=== PATIENT | male | born 1975 | race Two or more races ===

== ENCOUNTER 2017-10-29 23:18 | Emergency (ER) | payer SELFPAY ==
[~2017-10-29] VITALS: Ht 165.1 cm; Wt 79.4 kg
[2017-10-30 00:02] VITALS: BP 175/99
[2017-10-30] MEDS ORDERED: PROVENTIL HFA6.7 GM IH (00:02)
[2017-10-30] MEDS ORDERED: PRED50TA PO (00:02)
[2017-10-30] MEDS ORDERED: BENZ100C PO (00:02)
--- NOTE | 2017-10-30 00:04 | PHYS DOC ---
Past Medical History Past Medical History: Asthma, Hypertension Past Surgical History: Knee Replacement Additional Past Surgical Histo: left knee replacement, 2010 Alcohol Use: None Drug Use: None Adult General Chief Complaint Chief Complaint: Congestion HPI HPI Patient is a 42 year old male with history of hypertension, asthma and smoking who presents today with a dry cough for 2 weeks. Patient denies any fever. Review of Systems Review of Systems Constitutional: Denies any fever. Eyes: Denies change in visual acuity, redness, or eye pain [] HENT: Denies nasal congestion or sore throat [] Respiratory: Reports a dry cough, denies shortness of breath [] Cardiovascular: No additional information not addressed in HPI [] GI: Denies abdominal pain, nausea, vomiting, bloody stools or diarrhea [] : Denies dysuria or hematuria [] Musculoskeletal: Denies back pain or joint pain [] Integument: Denies rash or skin lesions [] Neurologic: Denies headache, focal weakness or sensory changes [] All other systems were reviewed and found to be within normal limits, except as documented in this note. Allergies Allergies Allergies Coded Allergies Type Severity Reaction Last Updated Verified Penicillins Allergy Intermediate 10/29/17 Yes Physical Exam Physical Exam Constitutional: Well developed, well nourished, no acute distress, non-toxic appearance. [] HENT: Normocephalic, atraumatic, bilateral external ears normal, oropharynx moist, no oral exudates, nose normal. [] Eyes: PERRLA, EOMI, conjunctiva normal, no discharge. [] Neck: Normal range of motion, no tenderness, supple, no stridor. [] Cardiovascular:Heart rate regular rhythm, no murmur [] Lungs & Thorax: Bilateral breath sounds clear to auscultation [] Abdomen: Bowel sounds normal, soft, no tenderness, no masses, no pulsatile masses. [] Skin: Warm, dry, no erythema, no rash. [] Back: No tenderness, no CVA tenderness. [] Extremities: No tenderness, no cyanosis, no clubbing, ROM intact, no edema. [] Neurologic: Alert and oriented X 3, normal motor function, normal sensory function, no focal deficits noted. [] Psychologic: Affect normal, judgement normal, mood normal. [] Current Patient Data Vital Signs Vital Signs Date Time Temp Pulse Resp B/P (MAP) Pulse Ox O2 Delivery O2 Flow Rate FiO2 10/29/17 23:26 97.9 68 18 215/105 (141) 100 Room Air 97.9 EKG EKG [] Radiology/Procedures Radiology/Procedures [] Course & Med Decision Making Course & Med Decision Making Pertinent Labs and Imaging studies reviewed. (See chart for details) Patient is in the ED with symptoms consistent of acute bronchitis. Chest x-ray interpreted by Dr. Nelson was negative for any acute findings. Will be discharged with albuterol inhaler, prednisone and Tessalon Perles. Encouraged to consider smoking cessation. Blood pressure was 201 over low 100s. Patient states he has history of hypertension and is on lisinopril 20 mg. There is question whether he is compliant considering he has no PCP and has no explanation of how he gets his BP medicines. I provided him a primary care doctor's list and instructed him to follow-up. Dragon Disclaimer Dragon Disclaimer This electronic medical record was generated, in whole or in part, using a voice recognition dictation system. Departure Departure Impression: Primary Impression: Acute bronchitis Additional Impressions: Smoking addiction Accelerated hypertension Disposition: 01 HOME, SELF-CARE Condition: STABLE Referrals: NO PCP (PCP) follow up with a doctor from the list provided in one week Patient Instructions: Acute Bronchitis, [id number], Hypertension, Smoking Cessation Additional Instructions: You were seen with symptoms consistent of acute bronchitis. Consider smoking cessation. Take the prescribed medicines as ordered. Your blood pressure was elevated in the emergency room. Ensure you are taking your blood pressure medicines as prescribed. Please follow-up with your doctor or a doctor from the list provided for high blood pressure management as well as regular checkups. Scripts Albuterol Sulfate (PROVENTIL HFA INHALER) 6.7 Gm Hfa.aer.ad 1 PUFF IH PRN Q4HRS Y for FOR ASTHMA, #1 INHALER 0 Refills Prov: MUTUNGAGRETCHEN EXTRUSION MANAGER 10/30/17 Benzonatate (TESSALON PERLE) 100 Mg Capsule 1 CAP PO TID, #30 CAP Prov: MUTUNGA,GRETCHEN EXTRUSION MANAGER 10/30/17 Prednisone (PREDNISONE) 50 Mg Tablet 1 TAB PO DAILY, #5 TAB Prov: MUTUNGA,GRETCHEN EXTRUSION MANAGER 10/30/17 Problem Qualifiers Primary Impression: Acute bronchitis Bronchitis organism: unspecified organism Qualified Codes: J20.9 - Acute bronchitis, unspecified MUTUNGA,GRETCHEN EXTRUSION MANAGER Oct 30, 2017 00:04
--- NOTE | 2017-10-30 07:47 | RAD ---
Chest, 2 views, 10/29/2017: History: Cough The heart size and pulmonary vascularity are normal. No pulmonary infiltrates are seen. There is no evidence of pleural fluid. Mild spurring is present in the spine. IMPRESSION: No acute cardiopulmonary abnormality is detected.
== END 2017-10-30 00:10 | disposition home or self-care (01) ==
LOC: ER 23:18
DX: J20.9 Acute bronchitis, unspecified (principal); I10 Essential (primary) hypertension; J45.909 Unspecified asthma, uncomplicated; F17.200 Nicotine dependence, unspecified, uncomplicated; Z88.0 Allergy status to penicillin
CPT/HCPCS: 71020; 99284

== ENCOUNTER 2018-01-28 21:44 | Emergency (ER) | payer SELFPAY ==
[2018-01-28] MEDS: DEXAMETHASONE SOD PHOS 4 MG/ML VIAL PO (22:54)
[2018-01-29 09:28] LABS: NEGATIVE OBC STREP NEG; POSITIVE OBC STREP POS
== END 2018-01-28 23:15 | disposition home or self-care (01) ==
LOC: ER 21:44
DX: K13.79 Other lesions of oral mucosa (principal); J02.9 Acute pharyngitis, unspecified; I10 Essential (primary) hypertension; J45.909 Unspecified asthma, uncomplicated; Z88.0 Allergy status to penicillin
CPT/HCPCS: 87070; 87880; 99283; J1100

== ENCOUNTER 2018-03-18 23:00 | Emergency (ER) | payer SELFPAY | END 2018-03-18 23:25 | disposition home or self-care (01) | LOC: ER 23:00 | DX: R11.0 Nausea (principal); J45.909 Unspecified asthma, uncomplicated; I10 Essential (primary) hypertension; Z88.0 Allergy status to penicillin; Z88.6 Allergy status to analgesic agent | CPT/HCPCS: 99283 ==

== ENCOUNTER 2018-05-09 02:45 | Emergency (ER) | payer SELFPAY ==
[2018-05-09] MEDS ORDERED: amLODIPine BESYLATE 5 MG TABLET PO (03:30)
[2018-05-09] MEDS ORDERED: hydroCHLOROthiazide 12.5 MG CAPSULE PO (03:30)
[2018-05-09] MEDS ORDERED: NITROGLYCERIN OINT 1 GM PACKET. TP (03:30)
[2018-05-09] MEDS ORDERED: LISINOPRIL 10 MG TABLET PO (03:30)
[2018-05-09] MEDS ORDERED: METOPROLOL TART IMMED RELEASE 25 MG TABLET. PO (03:30)
[2018-05-09 03:55] LABS: TROPONINI < 0.017 ng/mL (0.000-0.055)
[2018-05-09] MEDS ORDERED: IBUPROFEN 800 MG TABLET. PO (05:00)
[2018-05-09] MEDS ORDERED: HYDROcodone/APAP 7.5/325MG 1 TAB TABLET PO (05:00)
== END 2018-05-09 05:05 | disposition home or self-care (01) ==
LOC: ER 02:45
DX: I10 Essential (primary) hypertension (principal); R07.89 Other chest pain; J45.909 Unspecified asthma, uncomplicated; Z96.652 Presence of left artificial knee joint
CPT/HCPCS: 36415; 84484; 93005; 99285-25

== ENCOUNTER 2019-07-19 20:30 | Emergency (ER) | payer SELFPAY ==
[~2019-07-19] VITALS: Ht 165.1 cm; Wt 81.2 kg
[~2019-07-19 20:30] MED LIST: ALBU2.5V8 IH; AMLO10TA8 PO; BENZ100C PO; HYDR12.575 PO; LISI-130 PO; METO50TA6 PO; ONDA4TAB10 SL; PRED50TA PO
--- NOTE | 2019-07-19 21:04 | PHYS DOC ---
Past Medical History Past Medical History: Asthma, Hypertension Past Surgical History: Knee Replacement Additional Past Surgical Histo: left knee replacement, 2010 Alcohol Use: None Drug Use: None Adult General Chief Complaint Chief Complaint: CHEST PAIN HPI HPI Patient is a 44 year old male that presents with midsternal chest pain has been ongoing since this morning. Patient states is not made better or worse by rest or exacerbation exercise. The patient has a history of hypertension, and high cholesterol. The patient has not been taking his blood pressure medicine or his cholesterol medicine due to being out of the medicine and not being able to afford it. Rates his pain as 10 in severity and sharp. Review of Systems Review of Systems Constitutional: Denies fever or chills [] Eyes: Denies change in visual acuity, redness, or eye pain [] HENT: Denies nasal congestion or sore throat [] Respiratory: Denies cough or shortness of breath [] Cardiovascular: No additional information not addressed in HPI [] GI: Denies abdominal pain, nausea, vomiting, bloody stools or diarrhea [] : Denies dysuria or hematuria [] Musculoskeletal: Denies back pain or joint pain [] Integument: Denies rash or skin lesions [] Neurologic: Denies headache, focal weakness or sensory changes [] Endocrine: Denies polyuria or polydipsia [] Complete systems were reviewed and found to be within normal limits, except as documented in this note. Allergies Allergies Allergies Coded Allergies Type Severity Reaction Last Updated Verified Penicillins Allergy Intermediate 10/29/17 Yes aspirin Allergy Mild 03/04/18 Yes Physical Exam Physical Exam Constitutional: Well developed, well nourished, no acute distress, non-toxic appearance. [] HENT: Normocephalic, atraumatic, bilateral external ears normal, oropharynx moist, no oral exudates, nose normal. [] Eyes: PERRLA, EOMI, conjunctiva normal, no discharge. [] Neck: Normal range of motion, no tenderness, supple, no stridor. [] Cardiovascular:Heart rate regular rhythm, no murmur, midsternal chest is tender to palpation. Lungs & Thorax: Bilateral breath sounds clear to auscultation [] Abdomen: Bowel sounds normal, soft, no tenderness, no masses, no pulsatile masses. [] Skin: Warm, dry, no erythema, no rash. [] Back: No tenderness, no CVA tenderness. [] Extremities: No tenderness, no cyanosis, no clubbing, ROM intact, no edema. [] Neurologic: Alert and oriented X 3, normal motor function, normal sensory function, no focal deficits noted. [] Psychologic: Affect normal, judgement normal, mood normal. [] Current Patient Data Lab Values Laboratory Tests Test 07/19/19 20:38 White Blood Count 9.4 x10^3/uL (4.0-11.0) Red Blood Count 4.73 x10^6/uL (4.30-5.70) Hemoglobin 14.4 g/dL (13.0-17.5) Hematocrit 41.5 % (39.0-53.0) Mean Corpuscular Volume 88 fL (79-100) Mean Corpuscular Hemoglobin 30 pg (25-35) Mean Corpuscular Hemoglobin Concent 35 g/dL (31-37) Red Cell Distribution Width 15.0 % (11.5-14.5) H Platelet Count 308 x10^3/uL (140-400) Neutrophils (%) (Auto) 54 % (31-73) Lymphocytes (%) (Auto) 33 % (24-48) Monocytes (%) (Auto) 9 % (0-9) Eosinophils (%) (Auto) 4 % (0-3) H Basophils (%) (Auto) 1 % (0-3) Neutrophils # (Auto) 5.0 x10^3/uL (1.8-7.7) Lymphocytes # (Auto) 3.1 x10^3/uL (1.0-4.8) Monocytes # (Auto) 0.9 x10^3/uL (0.0-1.1) Eosinophils # (Auto) 0.3 x10^3/uL (0.0-0.7) Basophils # (Auto) 0.1 x10^3/uL (0.0-0.2) Sodium Level 143 mmol/L (136-145) Potassium Level 4.0 mmol/L (3.5-5.1) Chloride Level 108 mmol/L (98-107) H Carbon Dioxide Level 27 mmol/L (21-32) Anion Gap 8 (6-14) Blood Urea Nitrogen 10 mg/dL (8-26) Creatinine 1.4 mg/dL (0.7-1.3) H Estimated GFR (Cockcroft-Gault) 55.6 BUN/Creatinine Ratio 7 (6-20) Glucose Level 87 mg/dL (70-99) Calcium Level 9.3 mg/dL (8.5-10.1) Total Bilirubin 0.2 mg/dL (0.2-1.0) Aspartate Amino Transferase (AST) 21 U/L (15-37) Alanine Aminotransferase (ALT) 27 U/L (16-63) Alkaline Phosphatase 48 U/L (46-116) Troponin I Quantitative < 0.017 ng/mL (0.000-0.055) Total Protein 7.7 g/dL (6.4-8.2) Albumin 3.7 g/dL (3.4-5.0) Albumin/Globulin Ratio 0.9 (1.0-1.7) L Laboratory Tests 07/19/19 20:38 Laboratory Tests 07/19/19 20:38 EKG EKG Interpreted by Dr. Urbina. Sinus rate of 63, No STEMI.[] Radiology/Procedures Radiology/Procedures [] Course & Med Decision Making Course & Med Decision Making Pertinent Labs and Imaging studies reviewed. (See chart for details) Patient has been having cp, likely musculoskeletal in nature but will order labs, ekg, chest xray. Patient is allergic to aspirin. Labs and chest x-ray are unremarkable. Appears to be musculoskeletal in nature. Will write temporary scripts for blood pressure and cholesterol medication and have follow up with primary care provider. Heart score recommends D/c home. Dragon Disclaimer Dragon Disclaimer This electronic medical record was generated, in whole or in part, using a voice recognition dictation system. Departure Departure Impression: Primary Impression: Chest pain Disposition: HOME, SELF-CARE Condition: STABLE Referrals: NO PCP (PCP) Patient Instructions: Costochondritis, [id number] Additional Instructions: Thank you for visiting [facility]. We appreciate you trusting us with your care. If any additional problems come up don't hesitate to return to visit us. Please follow up with your primary care provider so they can plan additional care if needed and know about the problem that you had. If symptoms worsen come back to the Emergency Department. Any concerning symptoms that start such as chest pain, shortness of air, weakness or numbness on one side of the body, running high fevers or any other concerning symptoms return to the ER. Scripts Atorvastatin Calcium (LIPITOR) 20 Mg Tablet 20 MG PO DAILY for FOR CHOLESTEROL for 30 Days, #30 TAB 0 Refills Prov: LONDON RALPH APRN 07/19/19 Lisinopril/Hydrochlorothiazide (LISINOPRIL-HCTZ 20-12.5 MG TAB) 1 Each Tablet 1 TAB PO DAILY for 30 Days, #30 TAB 0 Refills Prov: LONDON RALPH APRN 07/19/19 The HEART Score for CP Pts HEART Score for Chest Pain: HEART Score for Chest Pain Response (Comments) Value History Slighlty/Non-Suspicious 0 ECG Normal 0 Age < 45 0 Risk Factors >3 Risk Factors or Hx CAD 2 Troponin < Normal Limit 0 Total 2 Risk Factors: Risk Factors: DM, Current or recent (<one month) smoker, HTN, HLP, family history of CAD, obesity. Risk Scores: Score 0 - 3: 2.5% MACE over next 6 weeks - Discharge Home Score 4 - 6: 20.3% MACE over next 6 weeks - Admit for Clinical Observation Score 7 - 10: 72.7% MACE over next 6 weeks - Early Invasive Strategies Problem Qualifiers Primary Impression: Chest pain Chest pain type: unspecified Qualified Codes: R07.9 - Chest pain, unspecified LONDON RALPH APRN Jul 19, 2019 21:04
[2019-07-19 21:08] LABS: BASO # 0.1 x10^3/uL (0.0-0.2); BASO % 1 % (0-3); EOS # 0.3 x10^3/uL (0.0-0.7); EOS % 4 % (0-3); HEMATOCRIT 41.5 % (39.0-53.0); HEMOGLOBIN 14.4 g/dL (13.0-17.5); LYMPH # 3.1 x10^3/uL (1.0-4.8); LYMPH % 33 % (24-48); MEAN CORPUSCULAR HEMOGLOBIN 30 pg (25-35); MEAN CORPUSCULAR HGB CONC 35 g/dL (31-37); MEAN CORPUSCULAR VOLUME 88 fL (79-100); MONO # 0.9 x10^3/uL (0.0-1.1); MONO % 9 % (0-9); NEUT % 54 % (31-73); PLATELET COUNT 308 x10^3/uL (140-400); RED BLOOD COUNT 4.73 x10^6/uL (4.30-5.70); WHITE BLOOD COUNT 9.4 x10^3/uL (4.0-11.0)
[2019-07-19 21:22] LABS: CALCIUM 9.3 mg/dL (8.5-10.1); CREATININE 1.4 mg/dL (0.7-1.3); GFR 55.6
[2019-07-19 21:28] LABS: ALBUMIN 3.7 g/dL (3.4-5.0); ALBUMIN/GLOBULIN RATIO 0.9 (1.0-1.7); TOTAL BILIRUBIN 0.2 mg/dL (0.2-1.0); TOTAL PROTEIN 7.7 g/dL (6.4-8.2)
[2019-07-19] MEDS ORDERED: LISI1TAB19 PO (21:53)
[2019-07-19] MEDS ORDERED: ATOR20TA PO (21:53)
[2019-07-19 22:04] VITALS: BP 165/83
--- NOTE | 2019-07-19 22:13 | RAD ---
CHEST PA LATERAL History: Chest pain, shortness of air, swelling for one day Comparison: March 05, 2018 Findings: 2 views of the chest are submitted. There is no infiltrate, pneumothorax, or effusion. Pericardial cardiac silhouette is within normal limits in size. Impression: 1. There is no radiographic evidence of acute cardiopulmonary disease. Electronically signed by: Balaji Duke MD (07/19/2019 10:10 PM) [facility]
--- NOTE | 2019-07-20 05:28 | EKG ---
[facility] [address] [place] [address] Test Date: 2019-07-19 Test Time: 20:34:11 Pat Name: THEA CHRISTIANSON Department: Room: Gender: M [employer]: : 1975 Requested By: LONDON RALPH Order Number: [id number] Reading MD: Lloyd Walters MD Measurements Intervals [place] Rate: 63 P: 37 [place]: 126 QRS: 5 QRSD: 88 T: 18 QT: 378 QTc: 390 Interpretive Statements SINUS RHYTHM Electronically Signed On 07-20-2019 18:53:30 CDT by Lloyd Walters MD
== END 2019-07-19 22:10 | disposition home or self-care (01) ==
LOC: ER 20:30
DX: R07.89 Other chest pain (principal); I10 Essential (primary) hypertension; E78.00 Pure hypercholesterolemia, unspecified; J45.909 Unspecified asthma, uncomplicated; Z88.0 Allergy status to penicillin; Z88.6 Allergy status to analgesic agent
CPT/HCPCS: 36415; 71046; 80053; 84484; 85025; 93005; 99283; 99285

== ENCOUNTER 2019-09-30 16:59 | Emergency (ER) | payer SELFPAY ==
[~2019-09-30] VITALS: Ht 165.1 cm; Wt 81.2 kg
[~2019-09-30 16:59] MED LIST changes: -ALBU2.5V8 IH; +ATOR20TA PO; +LISI1TAB19 PO; +PROVENTIL HFA6.7 GM IH
[2019-09-30 17:20] VITALS: BP 189/105
--- NOTE | 2019-09-30 17:26 | PHYS DOC ---
Past Medical History Past Medical History: Asthma, Hypertension Past Surgical History: Knee Replacement Additional Past Surgical Histo: left knee replacement, 2010 Alcohol Use: None Drug Use: None Adult General Chief Complaint Chief Complaint: KNEE INJURY HPI HPI Patient is a 44 year old male who presents with states he was at work this morning and at 0800 his tip of his got caught under a trash bin and he fell straight onto his knee. Patient states he continued to work all day. Patient rates his pain an 8 out of 10. Review of Systems Review of Systems Musculoskeletal: Denies back pain. Right knee joint pain [] All other systems were reviewed and found to be within normal limits, except as documented in this note. Current Medications Current Medications Current Medications Medications (Trade) Dose Ordered Sig/Karen Start Time Stop Time Status Last Admin Dose Admin Acetaminophen/ Hydrocodone Bitart (Lortab 5/325) 1 tab 1X ONCE 09/30/19 17:30 09/30/19 17:31 DC 09/30/19 17:54 1 TAB Allergies Allergies Allergies Coded Allergies Type Severity Reaction Last Updated Verified Penicillins Allergy Intermediate 10/29/17 Yes ketorolac Allergy Intermediate headache 09/30/19 Yes aspirin Allergy Mild 03/04/18 Yes Physical Exam Physical Exam Constitutional: Well developed, well nourished, no acute distress, non-toxic appearance. [] Skin: Warm, dry, no erythema, no rash. [] Back: No tenderness, no CVA tenderness. [] Extremities: Right knee tenderness, no cyanosis, no clubbing, ROM intact, Right knww 1+ edema. [] Neurologic: Alert and oriented X 3, normal motor function, normal sensory function, no focal deficits noted. [] Psychologic: Affect normal, judgement normal, mood normal. [] Current Patient Data Vital Signs Vital Signs Date Time Temp Pulse Resp B/P (MAP) Pulse Ox O2 Delivery O2 Flow Rate FiO2 09/30/19 17:20 97.8 80 18 189/105 (133) 95 Room Air 97.8 EKG EKG [] Radiology/Procedures Radiology/Procedures [] Impressions: [facility] [address] [place] [address] IMAGING REPORT Signed PATIENT: ADONIS CHRISTIANSONCCOUNT: [id number] : 1975 LOCATION: ER AGE: 44 SEX: M EXAM STATUS: REG ER ORD. PHYSICIAN: JESUS CHOU APRN REASON: fall PROCEDURE: KNEE RIGHT 4V 4 view right knee dated 09/30/2019. Comparison none. CLINICAL INDICATION: Pain. FINDINGS: 4 views of the right knee show normal bony alignment. No displaced fracture. No acute osseous or articular abnormality. Mild tricompartmental hypertrophic change. No apparent joint effusion or loose body. IMPRESSION: 1. No acute radiographic abnormality. 2. Mild tricompartmental DJD. Electronically signed by: Renzo Land MD (09/30/2019 5:58 PM) [facility] DICTATED and SIGNED BY: RENZO LAND MD DATE: 09/30/19 1757 Course & Med Decision Making Course & Med Decision Making Tenderness to the whole patella. No tenderness to the back of the knee. No tenderness to the tib-fib or the femur. Patient denies hitting his head or LOC. Patient denies any pain or injury to any other part of his body. Patient states he did not take any pain medications for this. Patient has 1+ swelling to the patella. Patient is able to bend it but is very painful. No laxity in the joint. There is no deformity or bruising or abrasion or laceration. Skin is pink warm and dry. Popliteal pulse present. Alert and oriented. Ambulatory with a steady gait. Speaks in full clear sentences. Dragon Disclaimer Dragon Disclaimer This electronic medical record was generated, in whole or in part, using a voice recognition dictation system. Departure Departure Impression: Primary Impression: Knee contusion Disposition: 01 HOME, SELF-CARE Condition: STABLE Referrals: NO PCP (PCP) Patient Instructions: Contusion, Knee Pain Additional Instructions: Follow up with primary care provider. Use and elevation to help with pain or swelling. Scripts Ibuprofen (IBUPROFEN) 600 Mg Tablet 600 MG PO PRN Q6HRS PRN for INFLAMMATION, #20 TAB Prov: JESUS CHOU APRN 09/30/19 Problem Qualifiers Primary Impression: Knee contusion Encounter type: initial encounter Laterality: right Qualified Codes: S80.01XA - Contusion of right knee, initial encounter JESUS CHOU APRN Sep 30, 2019 17:26
[2019-09-30] MEDS ORDERED: HYDROcodone/APAP 5/325MG 1 TAB TABLET PO ONE (17:30)
--- NOTE | 2019-09-30 18:01 | RAD ---
4 view right knee dated 09/30/2019. Comparison none. CLINICAL INDICATION: Pain. FINDINGS: 4 views of the right knee show normal bony alignment. No displaced fracture. No acute osseous or articular abnormality. Mild tricompartmental hypertrophic change. No apparent joint effusion or loose body. IMPRESSION: 1. No acute radiographic abnormality. 2. Mild tricompartmental DJD. Electronically signed by: Renzo Land MD (09/30/2019 5:58 PM) [facility]
[2019-09-30] MEDS ORDERED: IBUP-1007 PO (18:09)
== END 2019-09-30 18:16 | disposition home or self-care (01) ==
LOC: ER 16:59
DX: S80.01XA Contusion of right knee, initial encounter (principal); M17.11 Unilateral primary osteoarthritis, right knee; I10 Essential (primary) hypertension; J45.909 Unspecified asthma, uncomplicated; Z88.0 Allergy status to penicillin; Z88.6 Allergy status to analgesic agent; W18.09XA Striking against other object with subsequent fall, initial encounter; Y93.89 Activity, other specified; Y92.69 Other specified industrial and construction area as the place of occurrence of the external cause; Y99.0 Civilian activity done for income or pay
CPT/HCPCS: 73564; 99284

== ENCOUNTER 2020-10-23 16:47 | Emergency (ER) | payer SELFPAY ==
[~2020-10-23 16:47] MED LIST changes: +AMLO-187 PO; -AMLO10TA8 PO; +IBUP-1007 PO; -LISI1TAB19 PO; +LISI1TAB37 PO
== END 2020-10-23 17:34 | disposition left against medical advice (07) ==
LOC: ER 16:47
DX: M79.643 Pain in unspecified hand (principal); Z53.21 Procedure and treatment not carried out due to patient leaving prior to being seen by health care provider